=== PATIENT | female | born 1990 | race Two or more races ===

== ENCOUNTER 2024-12-01 21:33 | Emergency (ER) | payer MEDICAID, SELFPAY ==
[2024-12-01 21:34] VITALS: BMI 33.9
--- NOTE | 2024-12-01 21:46 | PD.EDABDPN ---
ED Abdominal Pain RME/HPI General Chief Complaint: Abdominal Pain Stated complaint: RUQ PAIN Time seen by provider: 12/01/24 21:43 Arrival date/time: 12/01/24 21:33 RME / HPI RME / HPI narrative: This section includes all my notes and documentations, including HPI, PE, and ED course. Don Zamora MD HPI: 33yo female with a history of DM, anemia, abdominoplasty presents to the ED for a chief complaint of right-sided and lower abdominal pain for a couple of days. No radiation or migration. She reports associated nausea that started last night and a decreased appetite. She denies any fever, chills, dysuria, hematuria, constipation, diarrhea or any other associated symptoms. She has not been checking her blood sugar. No other complaints. ROS: All negative except as documented in HPI. Physical Exam: General: Alert and oriented. In severe pain. Eyes: Conjunctivae and lids clear. ENT: No nasal congestion. Neck: Supple. Heart: RRR. Lungs: No respiratory distress. Good air movement. No rhonchi, wheezing, rales. Abdomen: Soft and RLQ tenderness. Legs: No clubbing, cyanosis, edema. Skin: Warm and dry. Neuro: Alert and oriented X 3. I reviewed all diagnostic test results. My review of the abdominal CT report is right ovarian cyst. My review of the GB ultrasound report is no acute findings. Blood tests and urine tests unremarkable. At this point, diagnoses include severe pain from ovarian cyst rupture. Treatment here included IV fluid and Zofran and morphine and Toradol. Significant improvement noted. Recommended supportive care. Based on my best medical judgment, made decision no further evaluation or treatment indicated at this time. Patient understands and agrees to the discharge instructions customized and printed, see below. Discharge instructions from Dr. Zamora: -- After extensive evaluation, there is no emergency such as appendicitis needing urgent surgery. -- Your pain is from ruptured ovarian cyst(s). -- In young females, it is normal to have ovarian cysts (sacs of fluid) that come and go depending on the menstruation.? If a cyst ruptures, it can cause severe pain until your body reabsorbs the fluid. -- Apply ice or heat if helpful.? Tylenol with codeine for severe pain. -- See a private doctor on 12/04/2024 for recheck and further care. Ask to review all test results and official radiology reports, to make sure you receive all necessary follow-ups and monitoring. -- Seek immediate medical care with worsening, fever, or with any concerns. Don Zamora MD Related Data Home Medications ?Medication ?Instructions ?Recorded ?Confirmed metformin 500 mg tablet 500 mg PO BID 11/08/19 08/13/20 Previous Rx's ?Medication ?Instructions ?Recorded acetaminophen 300 mg-codeine 30 mg 2 tab PO TID PRN pain #20 tabs 12/02/24 tablet ondansetron 4 mg disintegrating 4 mg PO TID PRN nausea and 12/02/24 tablet vomiting 5 days #10 tabs Allergies Allergy/AdvReac Type Severity Reaction Status Date / Time cefazolin (From [facility]) Allergy Verified 12/01/24 21:37 NSAIDS (Non-Steroidal AdvReac Severe Nose Bleed Verified 03/04/23 14:38 Anti-Inflamma Review of Systems Review of Systems Systems Reviewed: All systems reviewed, normal except as documented Past Medical History Past Medical History CARDIAC: Positive Hypercholesterolemia; Negative Cardiac Disorders or Congestive Heart Failure RESPIRATORY: Negative Chronic Obstructive Pulmonary Disease (COPD) or Asthma GASTROINTESTINAL: Positive Gastroesophageal Reflux Disease GENITOURINARY: Negative Renal Disease REPRODUCTIVE: Positive Previous Pregnancies ENDOCRINE: Positive Diabetes Mellitus Type 2; Negative Diabetes Mellitus Type 1 HEMATOLOGIC: Positive Blood Disorders; Negative Sickle Cell Disease Family History FAMILY HISTORY: Positive Family Gastrointestinal Problems Surgical History SURGICAL: Positive Section Social History SMOKING STATUS: Never smoker ED Exam Narrative Physical exam: As noted in HPI. Course Quality Measures none Orders Category Date Time Status Bedside COVID-19 Antigen Test NOW Care 12/01/24 21:47 Active Bedside Influenza A&B Antigen Test NOW Care 12/01/24 21:[address] Screening NOW Care 12/01/24 23:46 Active Glucose [Bedside Blood Glucose] NOW Care 12/01/24 21:47 Active Saline [Insert IV] NOW Care 12/01/24 21:47 Active Straight [In and Out Catheter] X1 Care 12/01/24 21:[address] abdomen pelvis w con Stat Exams 12/01/24 23:46 Taken US gall bladder Stat Exams 12/01/24 21:47 Completed Amylase Stat Lab 12/01/24 22:03 Completed BMP [Basic Metabolic Panel] Stat Lab 12/01/24 22:03 Completed CBC Stat Lab 12/01/24 22:03 Completed HCG Qualitative,Urine Stat Lab 12/01/24 22:24 Completed HCG,Qualitative Serum Stat Lab 12/01/24 22:03 Completed Lipase Stat Lab 12/01/24 22:03 Completed Liver Panel Stat Lab 12/01/24 22:03 Completed Magnesium Stat Lab 12/01/24 22:03 Completed UA, C/S IF [Urinalysis, C/S if Indicated] Stat Lab 12/01/24 22:24 Completed Ketorolac Inj [Toradol Inj] Med 12/01/24 21:48 Discontinued 30 mg IVP X1 ONE Morphine Inj Med 12/01/24 21:48 Discontinued 6 mg IVP X1 ONE Ondansetron Inj [Zofran Inj] Med 12/01/24 21:48 Discontinued 4 mg IV X1 ONE Sodium Chloride 0.9% 1000 ml [Ns] 1,000 ml Med 12/01/24 21:48 Discontinued IV 999 mls/hr Vital Signs Vital signs: Vital Signs Temperature 97.8 F 12/01/24 22:21 Pulse Rate 67 12/01/24 22:21 Respiratory Rate 18 12/01/24 22:21 Blood Pressure 145/93 H 12/01/24 22:21 Pulse Oximetry (%) 98 12/01/24 22:21 Oxygen Delivery Method Room Air 12/01/24 22:21 Abdominal Pain MDM MDM Narrative MDM Narrative:: Scribe Attestation: 12/01/24 Brisa Pimentel am scribing for and in the presence of Dr. Zamora. Patient data External records reviewed:: [facility] previous records (Per chart review, patient was seen here on 03/27/24 for abdominal pain during .) Clinical information provided by:: patient Social determinants that could affect healthcare access:: none Patient has the following chronic illnesses:: DM, anemia, abdominoplasty How is presenting disease/condition affected by chronic disease/condition?: uneffected by Evaluation data The following diagnostics were reviewed and interpreted by me:: lab results and radiology exam(s) Lab and/or radiology exams considered but not ordered:: none Interpretation Summary: Ovarian cyst rupture Medications / Prescriptions Medications or Prescriptions considered but not ordered:: none Medication administrations:: Medication Administration History Discontinued Medications Sodium Chloride (Ns) 1,000 mls @ 999 mls/hr IV .Q1H1M ONE Stop: 12/01/24 22:48 Last Infusion: 12/02/24 03:00 Dose: Infused Documented By: Admin: 12/02/24 01:52 Dose: 999 mls/hr Documented By: PENNY Ketorolac Tromethamine (Ketorolac Inj 30 Mg/Ml Vial) 30 mg IVP X1 ONE Stop: 12/01/24 21:49 Last Admin: 12/02/24 01:53 Dose: 30 mg Documented By: PENNY Morphine Sulfate (Morphine Sulf Inj 10 Mg/Ml Vial) 6 mg IVP X1 ONE Stop: 12/01/24 21:49 Last Admin: 12/02/24 01:53 Dose: 6 mg Documented By: PENNY Ondansetron HCl (Ondansetron Inj 2 Mg/Ml Inj 2 Ml) 4 mg IV X1 ONE; Protocol Stop: 12/01/24 21:49 Last Admin: 12/02/24 01:52 Dose: 4 mg Documented By: PENNY IV fluid and Zofran and Toradol and morphine Consultations Consultation(s) initiated? (list below): No Diagnosis Differential diagnosis abdominal pain: acute appendicitis, calculus of kidney, constipation, diverticulitis, endometriosis, gastroenteritis, pancreatitis and small bowel obstruction Most likely diagnosis given after review of the tests above:: Ovarian cyst rupture Admission Indicated Admission indicated?: not indicated Explain why admission is indicated or not indicated:: No criteria for admission Admission Request Was there a request for admission?: No Disposition Plan Disposition Plan: Discharge Discharge Attestation Discharge Attestation: The patient and all family members were given an opportunity to ask questions and understood the discharge instructions. Discharge instructions specifically effects, indications for sooner follow up or return to the emergency department, and the expected course of current diagnosis. Patient condition: Stable Discharge Plan Plan Patient Disposition: HOME (Self Care) Prescriptions/Referrals Prescriptions/Med Rec: New acetaminophen-codeine 300-30 mg tablet 2 tab PO TID MDD 6 PRN (Reason: pain) Qty: 20 0RF ondansetron 4 mg tablet,disintegrating 4 mg PO TID PRN (Reason: nausea and vomiting) 5 Days Qty: 10 0RF No Action metformin 500 mg Tablet 500 mg PO BID Referrals: Jose Guzman MD [Primary Care Provider] - In 1 week Problem List Clinical Impression: Ovarian cyst Patient/Caregiver Discharge Instructions Discharge Activity: activity as tolerated Education Materials: ED Ovarian Cyst Additional Instructions: Discharge instructions from Dr. Zamora: -- After extensive evaluation, there is no emergency such as appendicitis needing urgent surgery. -- Your pain is from ruptured ovarian cyst(s). -- In young females, it is normal to have ovarian cysts (sacs of fluid) that come and go depending on the menstruation.? If a cyst ruptures, it can cause severe pain until your body reabsorbs the fluid. -- Apply ice or heat if helpful.? Tylenol with codeine for severe pain. -- See a private doctor on 12/04/2024 for recheck and further care. Ask to review all test results and official radiology reports, to make sure you receive all necessary follow-ups and monitoring. -- Seek immediate medical care with worsening, fever, or with any concerns. Print Language: Northern Irish Stand Alone Forms: Winnie Award Info., Patient Portal Info Letter
--- NOTE | 2024-12-01 21:47 | XR_ITS ---
Examination: Abdomen sonogram, Limited Date and time of exam: December 01, 1999 2525 hours Indications: Right upper abdominal pain and tenderness beginning 4 days ago Technique: Real-time balbuena scale transabdominal sonographic images of the upper abdomen obtained. Findings: Normal gallbladder Normal common bile duct 0.3 cm Pancreatic head 3.1 cm Liver 15.0 cm fatty infiltration no focal liver lesions Normal hepatopedal portal venous flow Patent IVC Impression: Normal gallbladder Fatty liver
[2024-12-01 22:21] VITALS: BP 145/93; PULSE 67; RESP 18; TEMP 36.6; O2SAT 98
[2024-12-01 22:32] LABS: Basophils # (Auto) 0.1 Thou/mm3 (0.0-0.2); Basophils % (Auto) 1 % (0-2.5); Eosinophils # (Auto) 0.1 Thou/mm3 (0.0-0.5); Eosinophils % (Auto) 2 % (0-10); Hematocrit 37.4 % (36.0-46.0); Hemoglobin 12.2 g/dL (12.0-16.0); Immature Granulocytes % (Auto) 0 % (0-0); Immature Granulocytes Auto 0.01 Thou/mm3 (0.00-0.00); Lymphocytes % (Auto) 39 % (10-50); Mean Corpuscular HGB Conc 32.6 g/dl (31.0-37.0); Mean Corpuscular Hemoglobin 25.8 pg (25.0-35.0); Mean Corpuscular Volume 79 fL (80-100); Monocytes # (Auto) 0.5 Thou/mm3 (0.0-0.8); Monocytes % (Auto) 6 % (0-12); Neutrophils # (Auto) 3.9 Thou/mm3 (1.8-7.7); Neutrophils % (Auto) 52 % (37-80); Nucleated Red Blood Cell % 0 /100 WBC (0); Platelet Count 334 Thou/mm3 (140-440); RDW Standard Deviation 38.8 fL (36.4-46.3); Red Blood Count 4.72 Miln/mm3 (4.00-5.20); White Blood Count 7.5 Thou/mm3 (3.6-11.0)
[2024-12-01 22:52] LABS: Collection Type, Urine Clean Catch
[2024-12-01 22:53] LABS: HCG,Qualitative Serum Negative
[2024-12-01 23:06] LABS: Alanine Aminotransferase 17 U/L (10-49); Albumin, Serum 4.7 gm/dL (3.5-5.0); Alkaline Phosphatase 66 U/L (46-116); Anion Gap 6 (7-16); Aspartate Amino Transferase 18 U/L (0-34); BUN/Creatinine Ratio 13 Ratio (12-20); Bilirubin,Direct 0.1 mg/dL (0.0-0.3); Bilirubin,Total 0.4 mg/dL (0.3-1.2); Blood Urea Nitrogen 8 mg/dL (9-23); Calcium 9.7 mg/dL (8.3-10.6); Carbon Dioxide 29.4 mMol/L (20.0-31.0); Chloride 108 mMol/L (98-107); Creatinine (Component) 0.6 mg/dL (0.6-1.3); Estimated Creatinine Clearance 155.1 mL/min (>60); Glucose 125 mg/dL (74-106); Lipase 50 U/L (12-53); Magnesium 1.7 mg/dL (1.6-2.6); Osmolality,Calculated 284 (275-295); Potassium 3.9 mMol/L (3.4-5.1); Sodium 143 mMol/L (136-145); Total Protein 7.5 gm/dL (5.7-8.2); eGFR > 60 See Note
[2024-12-01 23:17] LABS: Amylase 122 U/L (30-118)
[2024-12-01 23:21] LABS: Bacteria,Urine Rare; Bilirubin,Urine Negative (Negative); Blood,Urine Negative (Negative); Clarity,Urine Clear (Clear/Hazy); Color,Urine Lt-Yellow (Lt Yel-Yel); Culture Indicated,Urine Not Indicated; Glucose, Urine Negative (Negative); Hyaline Casts,Urine < 1 /hpf (0-1); Ketones,Urine Negative (Negative); Leukocyte Esterase,Urine Negative (Negative); Nitrite,Urine Negative (Negative); PH,Urine 6.5 (5.0-7.0); Protein,Urine Trace (Neg - Trace); RBC,Urine 2 /hpf (0-3); Specific Gravity,Urine 1.024 (1.001-1.035); Squamous Epithelial Cell,Urine 2 /hpf (0-5); Urobilinogen,Urine Negative mg/dL (0.0-1.0); WBC,Urine 1 /hpf (0-5)
[2024-12-01 23:28] LABS: HCG Qualitative,Urine Negative
--- NOTE | 2024-12-01 23:46 | XR_ITS ---
Examination: CT abdomen with intravenous contrast CT pelvis with intravenous contrast 2-D coronal reconstructions 2-D sagittal reconstructions Date and time of exam:December 02, 2024 0301 hrs. Indications: Onset abdominal pain today. CTDI: vol (mGy) 12.3 DLP: (mGycm) 750 Technique: Multiple axial sections of the abdomen and pelvis have been obtained. 64 slice high-resolution scanner used. 3 mm axial sections have been obtained, post intravenous injection 60 cc [id number] 2-D sagittal, coronal reconstructions obtained. Low dose protocols were performed. One or more of the following dose reduction techniques were used; automated exposure control, adjustment of the mA and/or KV according to patient size, use of iterative reconstruction technique. Findings: No focal liver or splenic lesions No gallstones No pancreatic or adrenal mass No renal or ureteral calculi, no hydronephrosis Aorta normal size Normal appendix No bowel obstruction No diverticulitis Bilateral ovarian follicular cysts, the largest 28 mm in the right adnexal region No uterine mass Urinary bladder intact Mild cellulitis pattern in the right perineum No soft tissue abscess Impression: Bilateral ovarian follicular cysts Mild cellulitis pattern in the right perineum, no soft tissue abscess
[2024-12-02 00:54] VITALS: BP 158/94; PULSE 59; RESP 19; TEMP 36.8; O2SAT 99
[2024-12-02] MEDS: ONDANSETRON INJ 2 MG/ML INJ 2 ML 4 MG IV (01:52)
[2024-12-02] MEDS: SODIUM CHLORIDE 0.9% 1000 ML 1,000 ML 999 ML IV (01:52)
[2024-12-02] MEDS: MORPHINE SULF INJ 10 MG/ML VIAL 6 MG IVP (01:53)
[2024-12-02] MEDS: KETOROLAC INJ 30 MG/ML VIAL IVP (01:53)
[2024-12-02 02:05] VITALS: BP 154/108; PULSE 65; RESP 18; TEMP 36.8; O2SAT 99
--- NOTE | 2024-12-02 04:09 | PRELIM_ITS ---
CT scan of the abdomen and pelvis with intravenous contrast (axial sections with sagittal and coronal reformats) December 02, 2024 0301 hours Clinical History: Abdominal pain Comparison: None. Findings: The lung bases are clear. There is a right renal cyst, measuring 1 cm. The liver, gallbladder, pancreas, spleen and adrenals are unremarkable. No evidence of bowel obstruction. The appendix is within normal limits (images [id number]). There is no mesenteric or retroperitoneal adenopathy. The urinary bladder is unremarkable. There are bilateral follicles, the largest measuring 3 cm in the right ovary. The uterus is unremarkable. There is no free fluid or free air. The osseous structures are unremarkable. There is a soft tissue density with induration in the vulva at the area of the right labia majora and clitoris. Impression: 1. No evidence of acute intra-abdominal or pelvic pathology. 2. Bilateral ovarian follicles. Recommend clinical correlation and Recommend further evaluation with sonography if clinically indicated. 3. Soft tissue density with induration in the vulva at the area of the right labia majora and clitoris, suggestive of infection. Recommend gynecological consult and further evaluation with MRI if clinically indicated. 4. Other findings as described above. Report Electronically Signed By: Klaudia Cary 12/02/2024 4:08:43 AM [EST]
[2024-12-02 05:14] VITALS: BP 130/91; PULSE 86; RESP 18; TEMP 36.7; O2SAT 99
--- NOTE | 2024-12-02 05:42 | PC.NURSE ---
pt refused to have covid and flu swab. Pt stated we did it when she was waing for ED room. I was unable to verify this.
== END 2024-12-02 06:05 | disposition home or self-care (01) ==
PROVIDERS: Emergency Provider Emergency Medicine; PCP Family Medicine
DX: N83.02 Follicular cyst of left ovary (principal); N83.01 Follicular cyst of right ovary; R10.11 Right upper quadrant pain
CPT/HCPCS: 36415; 74177; 76705; 80048; 80076; 81001; 81025; 82150; 83690; 83735; 84703; 85025; 96374; 96375; 99285; A4649; J1885; J2270; J2405; J7030; Q9967

== ENCOUNTER 2025-04-15 02:29 | Emergency (ER) | payer MEDICAID, SELFPAY ==
[2025-04-15 02:39] VITALS: BP 140/100; PULSE 83; RESP 16; TEMP 37.1; O2SAT 97; BMI 33.9
--- NOTE | 2025-04-15 03:13 | EDNOTE_ITS ---
<Statement entered by Laisha Fontana MD - 04/27/25 19:09> As co-signing physician, I was present and available for consult prn. I concur with the plan and care as documented by the midlevel provider. ED Dental RME/HPI General Chief complaint: Dental/Oral/Throat Stated complaint: TOOTHACHE Time Seen by Provider: 04/15/25 02:54 Source: patient, RN notes reviewed and old records reviewed Arrival date/time: 04/15/25 02:29 Mode of arrival: ambulatory Limitations: no limitations RME / HPI RME / HPI Narrative: 34yof presents to ED for 1-2 week history of dental pain. Patient c/o toothache to right upper molar. She is currently taking amoxil and ibuprofen prescribed by dentist. Patient states she was unable to sleep tonight 2/2 pain. No fever, sore throat, facial swelling, sob, n/v, neck pain or headache reported. 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 Related Data Home Medications ?Medication ?Instructions ?Recorded ?Confirmed metformin 500 mg tablet 500 mg PO BID 11/08/1908/13 Previous Rx's ?Medication ?Instructions ?Recorded acetaminophen 300 mg-codeine 30 mg 2 tab PO TID PRN pa in #20 tabs 12/02/24 tablet acetaminophen 500 mg tablet 1,000 mg (2 x 500 mg) PO Q 6H PRN 04/15/25 (Tylenol Extra Strength) pain #30 tabs lidocaine HCl 2 % mucosal solution 3 ml topical .every 3 hours PRN 04/15/25 (Lidocaine Viscous) tooth/mouth pain #60 mL Allergies Allergy/AdvReac Type Severity Reaction Status Date / Time cefazolin (From [facility]) Allergy Verified 04/15/25 02:30 NSAIDS (Non-Steroidal AdvReac Severe Nose Bleed Verified 04/15/25 02:30 Anti-Inflamma Review of Systems Review of Systems Systems Reviewed: All systems reviewed, normal except as documented ENT Ears, Nose, Mouth, and Throat: Reports dental pain Past Medical History Past Medical History CARDIAC: Positive Hypercholesterolemia GASTROINTESTINAL: Positive Gastroesophageal Reflux Disease REPRODUCTIVE: Positive Previous Pregnancies ENDOCRINE: Positive Diabetes Mellitus Type 2 Surgical History SURGICAL: Positive Section Social History SMOKING STATUS: Never smoker SUBSTANCE USE: does not use ALCOHOL: Never ED Exam General Limitations: Present no limitations General appearance: Present alert and in no apparent distress Head Head exam: Present atraumatic and normocephalic Eye Eye exam: Present normal appearance, PERRL and EOMI ENT ENT exam: Present normal oropharynx, mucous membranes moist and other (Generalized dental caries. Tenderness over right upper molar. No gingival swelling or erythema. No facial swelling or trismus) Neck Neck exam: Present normal inspection and full ROM Chest Chest inspection: Present normal inspection and symmetric chest wall rise Respiratory Respiratory exam: Present normal lung sounds bilaterally; Absent respiratory distress, wheezes or stridor Cardiovascular Cardiovascular exam: Present regular rate and normal rhythm Extremities Exam Extremities exam: Present normal inspection and full ROM Neurological Exam Neurological exam: Present alert and oriented X3 Psychiatric Psychiatric exam: Present normal affect and normal mood Skin Skin exam: Present warm, dry, intact and normal color Course Quality Measures none Orders Category Date Time Status HYDROcodone*/APAP 7.5/325 [[place] 7.5/325] Med 04/15/25 03:13 Discontinued 1 tab PO X1 ONE Vital Signs Vital signs: Vital Signs Temperature 98.7 F 04/15/25 02:39 Pulse Rate 83 04/15/25 02:39 Respiratory Rate 16 04/15/25 02:39 Blood Pressure 140/100 H 04/15/25 02:39 Pulse Oximetry (%) 97 04/15/25 02:39 Oxygen Delivery Method Room Air 04/15/25 02:39 Dental / Oral MDM Narrative MDM Narrative:: 34yof presents to ED for 1-2 week history of dental pain. Patient c/o toothache to right upper molar. She is currently taking amoxil and ibuprofen prescribed by dentist. Patient states she was unable to sleep tonight 2/2 pain. No fever, sore throat, facial swelling, sob, n/v, neck pain or headache reported. 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 Will treat for acute dental pain. Instructed patient to complete antibiotic as prescribed. Close follow up with dentistry encouraged. Stable for dc, RTED precautions given. Patient data External records reviewed:: [facility] previous records (12/01/24 ED visit for ovarian cyst) Clinical information provided by:: patient Social determinants that could affect healthcare access:: other (specify) (unemployed, acculturation difficulty) Patient has the following chronic illnesses:: DM, GERD How is presenting disease/condition affected by chronic disease/condition?: exacerbated by Evaluation data The following diagnostics were reviewed and interpreted by me:: other (specify) (none) Lab and/or radiology exams considered but not ordered:: none Interpretation Summary: na Medications / Prescriptions Medications or Prescriptions considered but not ordered:: none Medication administrations:: Medication Administration History Discontinued Medications Hydrocodone Bitart/Acetaminophen (Hydrocodone/Apap 7.5/325 Tablet) 1 tab PO X1 ONE Stop: 04/15/25 03:14 Last Admin: 04/15/25 03:27 Dose: 1 tab Documented By: CVL above medication administered in ED Consultations Consultation(s) initiated? (list below): No Diagnosis Dental Differential Diagnosis: gingival abscess, dental caries, toothache, dental abscess and fracture of tooth Most likely diagnosis given after review of the tests above:: dental pain Admission Indicated Admission indicated?: not indicated Admission Request Was there a request for admission?: No Disposition Plan Disposition Plan: Discharge Discharge Attestation Discharge Attestation: The patient and all family members were given an opportunity to ask questions and understood the discharge instructions. Discharge instructions specifically effects, indications for sooner follow up or return to the emergency department, and the expected course of current diagnosis. Patient condition: Stable Discharge Plan Plan Patient Disposition: HOME (Self Care) Patient condition on transfer: Stable Prescriptions/Referrals Prescriptions/Med Rec: New acetaminophen [Tylenol Extra Strength] 500 mg tablet 1,000 mg PO Q6H PRN (Reason: pain) Qty: 30 0RF lidocaine HCl [Lidocaine Viscous] 2 % solution 3 ml topical .every 3 hours PRN (Reason: tooth/mouth pain) Qty: 60 0RF No Action metformin 500 mg Tablet 500 mg PO BID acetaminophen-codeine 300-30 mg tablet 2 tab PO TID MDD 6 PRN (Reason: pain) Qty: 20 0RF Referrals: Audie Cordon PA-C [Primary Care Provider] - In 1 week Problem List Clinical Impression: Pain, dental Patient/Caregiver Discharge Instructions Education Materials: ED Dental Pain Print Language: Dutch Stand Alone Forms: Winnie Award Info., Patient Portal Info Letter PA/PELON Supervising Physician PA/PELON Supervising Physician: Addi
[2025-04-15] MEDS: HYDROcodone/APAP 7.5/325 TABLET 1 TAB PO (03:27)
== END 2025-04-15 04:02 | disposition home or self-care (01) ==
PROVIDERS: Emergency Provider Emergency Medicine; PCP Physician Assistant
DX: K08.89 Other specified disorders of teeth and supporting structures (principal)
CPT/HCPCS: 99281; A9270

== ENCOUNTER 2025-07-14 21:32 | Emergency (ER) | payer MEDICAID, SELFPAY ==
[2025-07-14 21:34] VITALS: BMI 33.9
[2025-07-14 22:36] VITALS: BP 135/89; PULSE 92; RESP 18; TEMP 36.8; O2SAT 98
--- NOTE | 2025-07-14 22:55 | XR_ITS ---
Examination: CT brain head without contrast. 2-D sagittal coronal reconstructions Date and time of exam:July 14, 2025 1127 hrs. Indications: Onset headaches today CTDI: vol (mGy):54.2 DLP: (mGycm):1176 Technique: Multiple CT axial sections of the brain have been obtained, 5 mm slice thickness. Contrast has not been administered. 2-D sagittal, coronal reconstructions have been obtained Low dose protocols were performed. One or more of the following dose reduction techniques were used; automated exposure control, adjustment of the mA and/or KV according to patient size, use of iterative reconstruction technique. Findings: No significant ventricular enlargement. Intra-axial or extra-axial hemorrhage density is not seen. No mass effect or midline shift Basal cisterns are not remarkable. Fourth ventricle is midline. Cranial vault intact. Impression: Negative for acute hemorrhage, mass effect or midline shift Advise clinical correlation follow-up accordingly
--- NOTE | 2025-07-15 00:05 | PD.EDHA ---
ED Headache RME/HPI General Chief Complaint: Headache Stated Complaint: HEADACHE Time Seen by Provider: 07/14/25 22:46 Arrival date/time: 07/14/25 21:32 RME / HPI RME / HPI Narrative: DR. ANTOINE MAIN ED EVALUATION: Patient with gradual onset HAYNES at vortex/post occiput for approximately 3-4 days duration describes pressure-like sensation increasing with valsalva although no change with act. HAYNES constant and associated with several bouts nausea and vomiting. Denies URI or flu-like symptoms. Denies HAYNES disorder although reports recent diagnosis of HTN. PMH: HTN, Anemia PSH: Allergies: Cefazolin Related Data Home Medications ?Medication ?Instructions ?Recorded ?Confirmed metformin 500 mg tablet 500 mg PO BID 11/08/19 08/13/20 Previous Rx's ?Medication ?Instructions ?Recorded acetaminophen 300 mg-codeine 30 mg 2 tab PO TID PRN pain #20 tabs 12/02/24 tablet acetaminophen 500 mg tablet 1,000 mg (2 x 500 mg) PO Q6H PRN 04/15/25 (Tylenol Extra Strength) pain #30 tabs lidocaine HCl 2 % mucosal solution 3 ml topical .every 3 hours PRN 04/15/25 (Lidocaine Viscous) tooth/mouth pain #60 mL czejebladc-lqguszattnbmv-eolqptxm 1 cap PO Q6H PRN pain #30 caps 07/15/25 50 mg-300 mg-40 mg capsule (Fioricet) promethazine 12.5 mg tablet 12.5 mg PO TID PRN nausea and 07/15/25 vomiting #14 tabs Allergies Allergy/AdvReac Type Severity Reaction Status Date / Time cefazolin (From [facility]) Allergy Verified 04/15/25 02:30 NSAIDS (Non-Steroidal AdvReac Severe Nose Bleed Verified 04/15/25 02:30 Anti-Inflamma Review of Systems Review of Systems Systems Reviewed: All systems reviewed, normal except as documented Past Medical History Past Medical History CARDIAC: Positive Hypercholesterolemia GASTROINTESTINAL: Positive Gastroesophageal Reflux Disease REPRODUCTIVE: Positive Previous Pregnancies ENDOCRINE: Positive Diabetes Mellitus Type 2 HEMATOLOGIC: Positive Blood Disorders Family History FAMILY HISTORY: Positive Family Gastrointestinal Problems Surgical History SURGICAL: Positive Section ED Exam Narrative Physical exam: GEN. APPEARANCE: The patient is alert awake oriented X-3 in mild to moderate distress c/o HAYNES, lying down comfortably, does not look ill/toxic. Patient has good eye contact. Patient is cooperative. VITALS: All vitals were reviewed and the pulse ox is 98% on room air which is normal according to my interpretation. HEENT: Normocephalic, atraumatic. Pupils are equal and reactive. Fundoscopic exam is normal. Oral mucosa is moist. Patent Nares NECK: Supple, nontender, no thyromegaly, no meningismus, no JVD, no step offs CHEST: Symmetrical, atraumatic, and with equal expansion , Nontender on palpation no deformity and no crepitus. CARDIOVASCULAR: Heart regular rhythm no murmur or gallop rub or extra beats. LUNGS: Clear to auscultation bilaterally with symmetrical chest rise. No laboring tachypnea or wheezing. No intercostal subcostal retraction. No rales and no rhonchi. ABDOMEN: Soft, flat, nontender to palpation, no guarding or rebound tenderness. There are no abnormal masses palpated. Active and normal bowel sounds. EXTREMITIES: Nontender. No edema. No cyanosis. Patient is able to move all 4 extremities well, with full ROM and good CSM. SKIN: Warm and dry, no jaundice or rashes noted. MUSCULOSKELETAL: No lubar or midline bony tenderness. There is no CVA tenderness. No paraspinal muscle spasm or tenderness. NEURO: Patient is SHAH x 4, Cranial nerves II through XII grossly intact. There is no focal neurologic deficits noted. GCS is 15, PNS and ASSEM[employer] SKYLIGHTS appear grossly intact. No allodynia. PSYCHIATRIC: Patient is in normal mood and affect, cooperative, no SI or HI or hallucinations. Course Quality Measures none Orders Category Date Time Status CT head/brain wo con Stat Exams 07/14/25 22:55 Completed Beta HCG,Quantitative Stat Lab 07/15/25 00:37 Completed CBC [CBC] Stat Lab 07/14/25 23:58 Completed CMP [Comprehensive Metabolic Panel] Stat Lab 07/14/25 23:58 Completed Dexamethasone Inj [Decadron Inj] 10 mg Med 07/14/25 23:58 Discontinued Sodium Chloride 0.9% [Ns] 100 ml IV X1 Morphine* Inj Med 07/15/25 00:01 Discontinued 4 mg IVP X1 ONE Prochlorperazine Inj [Compazine Inj] Med 07/14/25 23:58 Discontinued 5 mg IV X1 ONE Sodium Chloride 0.9% 1000 ml [Ns] 1,000 ml Med 07/14/25 23:58 Discontinued IV 999 mls/hr Vital Signs Vital signs: Vital Signs Temperature 98.3 F 07/14/25 22:36 Pulse Rate 92 07/14/25 22:36 Respiratory Rate 18 07/14/25 22:36 Blood Pressure 135/89 H 07/14/25 22:36 Pulse Oximetry (%) 98 07/14/25 22:36 Oxygen Delivery Method Room Air 07/14/25 22:36 Headache MDM Narrative MDM Narrative:: Scribe Attestation: I, Haylee Sanders, am scribing for and in the presence of Dr. Antoine. Provider Notation: Although this document has been carefully reviewed, there may still be some phonetic and other typographical errors. These errors are purely grammatical due to imperfections in the software program and should not be construed in any way to compromise the substance of the patient's medical care during this visit. Patient with gradual onset HAYNES at vortex/post occiput for approximately 3-4 days duration describes pressure-like sensation increasing with valsalva although no change with act. HAYNES constant and associated with several bouts nausea and vomiting. Please see PE findings. Laboratory markers were unremarkable. CT of the brain was negative for acute process. treated with migraine cocktail with marked overall improvement and remained neuorologically intact. Headache is that of a mixed variety, will treat accordingly. Patient data External records reviewed:: [facility] previous records (Reviewed prior ED records from 04/15/25. Patient was seen for Pain, dental.) Clinical information provided by:: patient Social determinants that could affect healthcare access:: none Patient has the following chronic illnesses:: HTN, Anemia, Hypercholesterolemia, Gastroesophageal Reflux Disease, Diabetes Mellitus Type 2 How is presenting disease/condition affected by chronic disease/condition?: exacerbated by Evaluation data The following diagnostics were reviewed and interpreted by me:: lab results and radiology exam(s) Lab and/or radiology exams considered but not ordered:: None Interpretation Summary: RADIOLOGY Head/Brain CT: Findings: No significant ventricular enlargement. Intra-axial or extra-axial hemorrhage density is not seen. No mass effect or midline shift Basal cisterns are not remarkable. Fourth ventricle is midline. Cranial vault intact. Impression: Negative for acute hemorrhage, mass effect or midline shift Advise clinical correlation follow-up accordingly Medications / Prescriptions Medications or Prescriptions considered but not ordered:: None Medication administrations:: Medication Administration History Discontinued Medications Sodium Chloride (Ns) 1,000 mls @ 999 mls/hr IV .Q1H1M ONE Stop: 07/15/25 00:58 Last Infusion: 07/15/25 02:20 Dose: Infused Documented By: Admin: 07/15/25 01:02 Dose: 999 mls/hr Documented By: BIJAL Dexamethasone Sodium Phosphate (10 mg/ Sodium Chloride) 101 mls @ 101 mls/hr IV X1 ONE Stop: 07/14/25 23:59 Last Infusion: 07/15/25 04:33 Dose: Infused Documented By: Admin: 07/15/25 01:03 Dose: 101 mls/hr Documented By: BIJAL Morphine Sulfate (Morphine Sulf Inj 4 Mg/Ml Vial) 4 mg IVP X1 ONE Stop: 07/15/25 00:02 Last Admin: 07/15/25 01:03 Dose: 4 mg Documented By: BIJAL Prochlorperazine Edisylate (Prochlorperazine Inj 5 Mg/Ml Vial 2 Ml) 5 mg IV X1 ONE; Protocol Stop: 07/14/25 23:59 Last Admin: 07/15/25 01:04 Dose: 5 mg Documented By: BIJAL See above if any Consultations Consultation(s) initiated? (list below): No Diagnosis Differential diagnosis headache: migraine, tension headache, headache and sinusitis Most likely diagnosis given after review of the tests above:: Acute tension headache Admission Indicated Admission indicated?: not indicated Explain why admission is indicated or not indicated:: Patient does not meet admission criteria Admission Request Was there a request for admission?: No Disposition Plan Disposition Plan: Discharge Discharge Attestation Discharge Attestation: The patient and all family members were given an opportunity to ask questions and understood the discharge instructions. Discharge instructions specifically effects, indications for sooner follow up or return to the emergency department, and the expected course of current diagnosis. Patient condition: Stable Discharge Plan Plan Patient Disposition: HOME (Self Care) Discharge Disposition comment: Stable Prescriptions/Referrals Prescriptions/Med Rec: New promethazine 12.5 mg tablet 12.5 mg PO TID PRN (Reason: nausea and vomiting) Qty: 14 0RF Rx Instructions: May also take for headache. [id number]-uzqfmavhulrmk-[id number] [Fioricet] 50-300-40 mg capsule 1 cap PO Q6H PRN (Reason: pain) Qty: 30 0RF No Action metformin 500 mg Tablet 500 mg PO BID acetaminophen [Tylenol Extra Strength] 500 mg tablet 1,000 mg PO Q6H PRN (Reason: pain) Qty: 30 0RF lidocaine HCl [Lidocaine Viscous] 2 % solution 3 ml topical .every 3 hours PRN (Reason: tooth/mouth pain) Qty: 60 0RF acetaminophen-codeine 300-30 mg tablet 2 tab PO TID MDD 6 PRN (Reason: pain) Qty: 20 0RF Referrals: Layne Mitchell MD [Primary Care Provider] - In 1 week Problem List Clinical Impression: Acute tension headache Patient/Caregiver Discharge Instructions Discharge Activity: activity as tolerated Education Materials: ED Headache, Tension Additional Instructions: Maintain adequate rest, with dark room and application of ice compresses. Medication as directed. Follow-up primary care doctor in 5 to 7 days return if worsening. Print Language: Khmer Stand Alone Forms: Winnie Award Info., Patient Portal Info Letter
[2025-07-15 01:00] LABS: Basophils # (Auto) 0.1 Thou/mm3 (0.0-0.2); Basophils % (Auto) 1 % (0-2.5); Eosinophils # (Auto) 0.2 Thou/mm3 (0.0-0.5); Eosinophils % (Auto) 3 % (0-10); Hematocrit 34.4 % (36.0-46.0); Hemoglobin 11.4 g/dL (12.0-16.0); Immature Granulocytes Auto 0.01 Thou/mm3 (0.00-0.00); Lymphocytes # (Auto) 2.8 Thou/mm3 (1.0-4.8); Lymphocytes % (Auto) 41 % (10-50); Mean Corpuscular HGB Conc 33.1 g/dl (31.0-37.0); Mean Corpuscular Hemoglobin 26.6 pg (25.0-35.0); Mean Corpuscular Volume 80 fL (80-100); Monocytes # (Auto) 0.5 Thou/mm3 (0.0-0.8); Monocytes % (Auto) 7 % (0-12); Neutrophils # (Auto) 3.4 Thou/mm3 (1.8-7.7); Neutrophils % (Auto) 49 % (37-80); Nucleated Red Blood Cell # 0.00 Thou/mm3 (0.00-0.00); Nucleated Red Blood Cell % 0 /100 WBC (0); Platelet Count 238 Thou/mm3 (140-440); RDW Standard Deviation 39.4 fL (36.4-46.3); Red Blood Count 4.29 Miln/mm3 (4.00-5.20); White Blood Count 6.9 Thou/mm3 (3.6-11.0)
[2025-07-15] MEDS: SODIUM CHLORIDE 0.9% 1000 ML 1,000 ML 999 ML IV (01:02)
[2025-07-15] MEDS: MORPHINE SULF INJ 4 MG/ML VIAL IVP (01:03)
[2025-07-15] MEDS: DEXAMETHASONE INJ 10 MG in SODIUM CHLORIDE 0.9% 100 ML 101 MG IV (01:03)
[2025-07-15] MEDS: PROCHLORPERAZINE INJ 5 MG/ML VIAL 2 ML IV (01:04)
[2025-07-15 01:20] LABS: Alanine Aminotransferase 26 U/L (10-49); Albumin, Serum 4.1 gm/dL (3.5-5.0); Albumin/Globulin Ratio 1.8 (1.2-2.2); Alkaline Phosphatase 104 U/L (46-116); Anion Gap 9 (7-16); Aspartate Amino Transferase 26 U/L (0-34); BUN/Creatinine Ratio 14 Ratio (12-20); Bilirubin,Total 0.2 mg/dL (0.3-1.2); Blood Urea Nitrogen 11 mg/dL (9-23); Calcium 9.3 mg/dL (8.3-10.6); Calcium (Corrected) 9.3 mg/dL (8.5-10.1); Carbon Dioxide 25.8 mMol/L (20.0-31.0); Chloride 104 mMol/L (98-107); Creatinine (Component) 0.8 mg/dL (0.6-1.3); Estimated Creatinine Clearance 115.3 mL/min (>60); Globulin 2.3 gm/dL (2.3-3.5); Glucose 223 mg/dL (74-106); Osmolality,Calculated 283 (275-295); Potassium 4.4 mMol/L (3.4-5.1); Sodium 139 mMol/L (136-145); Total Protein 6.4 gm/dL (5.7-8.2); eGFR > 60 See Note
[2025-07-15 01:29] VITALS: BP 134/84; PULSE 70; RESP 16; O2SAT 97
[2025-07-15 03:35] VITALS: BP 130/68; PULSE 71; RESP 15; O2SAT 97
[2025-07-15 03:50] LABS: Beta HCG,Quantitative < 1 mIU/mL (<5.0)
[2025-07-15 04:11] VITALS: BP 142/86; PULSE 76; RESP 14; TEMP 37; O2SAT 99
== END 2025-07-15 04:12 | disposition home or self-care (01) ==
PROVIDERS: Emergency Provider Emergency Medicine; PCP Family Medicine
DX: G44.209 Tension-type headache, unspecified, not intractable (principal)
CPT/HCPCS: 36415; 70450; 80053; 81001; 81025; 84702; 85025; 96365; 96366; 96375; 99284; J0780; J1100; J2270; J7030; J7050